=== PATIENT | female | born 1960 | race Caucasian/White ===

== ENCOUNTER → 2019-10-18 | Outpatient (CLI) | payer BC ==
--- NOTE | 2019-10-18 10:43 | KCIC ---
Bone densitometry Clinical history: female postmenopausal with osteopenia. Lumbar spine: L1-L4. Dual energy x-ray absorptiometry of the lumbar spine, reveals a bone mineral density of 0.893 gm/cm2. It is 1.4 standard deviations below the expected young adult normal value (T-score = -1.4 ). At this bone density level, fracture risk is increased. Hip: Left. Dual energy x-ray absorptiometry of the left femoral neck reveals a bone mineral density of 0.72 gm/cm2. It is 1.3 standard deviations below the expected young adult normal value (T-score = -1.3 ). At this bone density level, fracture risk is increased. Impression: 1. Decreased bone mineral density of the lumbar spine and hip. Note: Definitions established by the World Health Organization: 1. Normal: T-score is -1.0 or above. 2. Osteopenia: T-score is between -1.0 and -2.5. 3. Osteoporosis: T-score is -2.5 or below. Electronically signed by: Peng Kruse MD (10/18/2019 10:40 AM) [id number]
--- NOTE | 2019-10-30 16:13 | KCIC ---
Bilateral digital screening mammograms with 3-D tomosynthesis: Reason for examination: Routine screening. Comparison is made to previous studies dated back to 09/30/2015. Bilateral mammograms in CC and oblique projections were obtained with 2-D imaging and 3-D tomosynthesis imaging on a Siemens Inspiration unit and reviewed on the workstation. Interpretation was made with the benefit of CAD. The skin and nipples show no abnormalities. No abnormal axillary lymph nodes are seen. The breast parenchyma shows scattered fatty and fibroglandular density. (Breast density: Category B.) There are no dominant masses, suspicious calcifications or architectural distortion. Impression: No evidence of malignancy. Recommend routine screening. BI-RAD Category 1: Negative. "Our facility is accredited by the [employer] Mammography Program." This patient's information has been entered into a reminder system for the patient to be notified with the results of her examination and a target date for the next mammogram. Electronically signed by: Tricia Zamora MD (10/30/2019 4:10 PM) [id number]
== END | disposition home or self-care (01) ==
LOC: KCIC DEXA 10-12 08:02
PROVIDERS: ATTEND Family Medicine
DX: Z12.31 Encounter for screening mammogram for malignant neoplasm of breast (principal); M85.80 Other specified disorders of bone density and structure, unspecified site
CPT/HCPCS: 77063; 77067; 77080

== ENCOUNTER → 2020-09-20 | Outpatient (CLI) | payer BC ==
--- NOTE | 2020-09-20 18:40 | RAD ---
MR#: [id number] Date of Study: 09/20/2020 Ordering Physician: WILLIAM RM, Referring Physician: AIMEE GUERRIER Tech: RT Ricardo (R) (N) APPROVED REPORT Test Type: Exercise Stress Nurse/Tech: Virginia Patricia RN Test Indications: Chest pain Cardiac History: No known cardiac Medications: See Electronic Medical Record Medical History: See Electronic Medical Record Resting ECG: SR Resting Heart Rate: 75 bpm Resting Blood Pressure: 112/64mmHg Pretest Chest Pain: No chest pain Nurse/Tech Notes S1,S2 and lungs clear to auscultation. Consent: The procedure was explained to the patient in lay terms. Informed consent was witnessed. Eze eout was entered into [employer]. History and Stress Test performed by JOSH Ritchie Stress Symptoms No chest pain or symptoms. POST EXERCISE Reason for Termination: Reached target heart rate Target HR: Yes Max HR: 145 bpm 105% of Maximum Predicted HR: 137 bpm Exercise duration: 7:25 min:sec, 3 Stage Exercise capacity: 10METs Max Blood Pressure: 126/71mmHg Blood Pressure response to exercise: Normal blood pressure response during stress. Heart Rate response to exercise: WNL Chest Pain: No. Arrhythmia: No. ST Change: No. INTERPRETATION Stress EKG Conclusion: Nondiagnostic EKG due to significant motion artifact. Imaging Protocol IMAGE PROTOCOL: Rest Tc-99m/stress Tc-99m 1 day Rest: Stress: Viability: Radiopharm.Tc99m [id number] Sestamibi Ltfd05zPk 31mCi Duration 15min. 15min. Img Date 09/20/2020 09/20/2020 Inj-Img [id number]. 60min. Rest Admin Site:IV - Left AntecubitalAdministrator:RT Ricardo (R)(N) Stress Admin Site: IV - Left AntecubitalAdministrator: JOSH Ritchie STRESS DATA End Diast. Vol.90.0mlAv. Heart Rate77.0bpm End Syst. Vol.28.0mlCO Index BSA0.0L/min Myocardial Ooyw275.0gEject. Gweqplpo91.0% Stress Rates Pk. Fill Rate3.15EDV/secLVtime Pk. Fill 208.11msec Pk. Empty Rate4.19ESV/secLVtime Pk. Hpttj621.44msec 1/3 Pk. Fill1.38EDV/sec Stress Scores Regional WT0.00Summed WT0.00 Regional WM0.00Summed WM1.00 The rest and stress images show normal perfusion, normal contraction and thickening. LV Perf. Quant 17 Seg. SSS1.00 17 Seg. SRS2.00 17 Seg. SDS0.00 Stress Defect Extent (% LAD)3.80Rest Defect Extent (% LAD)12.50Rev. Defect Extent (% LAD)0.00 Stress Defect Extent (% LCX) 0.00Rest Defect Extent (% LCX)0.00Rev. Defect Extent (% LCX)0.00 Stress Defect Extent (% RCA)0.00Rest Defect Extent (% RCA)0.00Rev. Defect Extent (% RCA)0.00 Stress Defect Extent (% RICKEY)1.30Rest Defect Extent (% RICKEY)5.00Rev. Defect Extent (% RICKEY)0.00 Other Information Quality:Average Risk Assessment: Low Risk Conclusion 1. Nondiagnostic stress EKG due to significant motion artifact 2. Average exercise capacity with 10 metabolic equivalents achieved 3. Normal perfusion stress and rest. 4. Normal LV systolic function with ejection fraction greater than 70%. 5. Low risk study. Signed by : Jonathan Montez, Electronically Approved : 09/20/2020 18:40:22
--- NOTE | 2020-09-20 19:18 | CARD ---
MR#: [id number] Date of Study: 09/20/2020 Ordering Physician: WILLIAM RM, Referring Physician: WILLIAM RM, Tech: Maliha Mckinley [facility] APPROVED REPORT EXAM: Two-dimensional and M-mode echocardiogram with Doppler and color Doppler. Other Information Quality : GoodHR: 84bpm Rhythm : NSR INDICATION Palpitations 2D DIMENSIONS RVDd3.4 (2.9-3.5cm)Left Atrium(2D)3.4 (1.6-4.0cm) IVSd0.8 (0.7-1.1cm)Aortic Root(2D)2.9 (2.0-3.7cm) LVDd4.7 (3.9-5.9cm)LVOT Diameter2.1 (1.8-2.4cm) PWd0.9 (0.7-1.1cm)LVDs3.4 (2.5-4.0cm) FS (%) 28.5 %SV56.4 ml LVEF(%)54.9 (>50%) Aortic Valve AoV Peak Chalo.112.5cm/sAoV VTI22.2cm AO Peak GR.5.1mmHgLVOT Peak Chalo.87.3cm/s AO Mean GR.3mmHgAVA (VMAX)2.81cm2 Mitral Valve MV E Yqwiqjpz56.2cm/sMV DECEL [id number] MV A Gminocis08.1cm/sE/A Ratio0.8 LEFT VENTRICLE The left ventricle is normal size. There is normal left ventricular wall thickness. The left ventricu lar systolic function is normal and the ejection fraction is within normal range. Estimated ejection fraction 60-65%. There is normal LV segmental wall motion. Tissue Doppler imaging reveals mild left v entricular diastolic dysfunction. RIGHT VENTRICLE The right ventricle is normal size. There is normal right ventricular wall thickness. The right ventr icular systolic function is normal. ATRIA The left atrium size is normal. The right atrium size is normal. The interatrial septum is intact wit h no evidence for an atrial septal defect or patent foramen ovale as noted on 2-D or Doppler imaging. AORTIC VALVE The aortic valve is normal in structure and function. Doppler and Color Flow revealed no significant aortic regurgitation. There is no significant aortic valvular stenosis. MITRAL VALVE The mitral valve is normal in structure and function. There is no evidence of mitral valve prolapse. There is no mitral valve stenosis. Doppler and Color-flow revealed mild mitral regurgitation. TRICUSPID VALVE The tricuspid valve is normal in structure and function. Doppler and Color Flow revealed no tricuspid valve regurgitation noted. There is no tricuspid valve stenosis. PULMONIC VALVE Doppler and Color Flow revealed no pulmonic valvular regurgitation. There is no pulmonic valvular martin nosis. GREAT VESSELS The aortic root is normal in size. The ascending aorta is normal in size. The IVC is normal in size a nd collapses >50% with inspiration. PERICARDIAL EFFUSION There is no evidence of significant pericardial effusion. Critical Notification Critical Value: No <Conclusion> The left ventricular systolic function is normal and the ejection fraction is within normal range. E stimated ejection fraction 60-65%. There is normal LV segmental wall motion. Doppler and Color-flow revealed mild mitral regurgitation. Signed by : Jonathan Montez, Electronically Approved : 09/20/2020 19:17:30
== END ==
LOC: NM 08:21
PROVIDERS: ATTEND Internal Medicine Cardiovascular Disease
DX: I34.0 Nonrheumatic mitral (valve) insufficiency (principal)
CPT/HCPCS: 78452; 93017; 93306; A9500

== ENCOUNTER → 2021-02-17 | Outpatient (CLI) | payer BC ==
--- NOTE | 2021-02-17 16:59 | KCIC ---
Bilateral digital screening mammograms: Reason for examination: Routine screening. Comparison is made to previous studies dated back to 09/19/2014. Interpretation was made with the benefit of CAD. The skin and nipples show no abnormalities. No abnormal axillary lymph nodes are seen. The breast par enchyma shows scattered fibroglandular density. (Breast density: Category B.) There are no dominant m asses, suspicious calcifications or architectural distortions. Impression: No evidence of malignancy. Recommend routine screening. BI-RADS Category 1: Negative. "Our facility is accredited by the [employer] Mammography Program." This patient's information has been entered into a reminder system for the patient to be notified wit h the results of her examination and a target date for the next mammogram. Electronically signed by: Tricia Zamora MD (02/17/2021 4:56 PM) [id number]
== END ==
LOC: KCIC MAMMO 15:21
PROVIDERS: ATTEND Family Medicine
DX: Z12.31 Encounter for screening mammogram for malignant neoplasm of breast (principal)
CPT/HCPCS: 77067